=== PATIENT | male | born 1980 | race Caucasian/White ===

== ENCOUNTER → 2021-05-04 09:05 | Outpatient (CLI) | payer OTHER, SELFPAY ==
[2021-05-04 14:36] LABS: Influenza Control Positive
[2021-05-06 19:41] LABS: SARS-CoV-2 RNA PCR Negative
== END ==
PROVIDERS: PCP Internal Medicine; Visit Provider Internal Medicine
DX: R09.89 Other specified symptoms and signs involving the circulatory and respiratory systems (principal); Z20.822 Contact with and (suspected) exposure to COVID-19
CPT/HCPCS: 87804; C9803; U0003; U0005

== ENCOUNTER 2022-04-07 08:03 | Emergency (ER) | payer OTHER, SELFPAY ==
--- NOTE | 2022-04-07 08:13 | ED.URI ---
HPI - URI/Sore Throat General Chief Complaint: Upper Respiratory Infection Stated Complaint: cough Time Seen by Provider: 04/07/22 08:18 Source: patient and RN notes reviewed Mode of arrival: ambulatory Limitations: no limitations History of Present Illness HPI Narrative: [age] year old old male presents concern for sinus infection. He reports at least 1 week history of increased sinus congestion, pressure, drainage. Reports he had COVID in February and has had some level of sinus problems since that time. He reports he has been using Claritin-D for at least 1 week and is not having relief. He reports facial pain, pressure. He denies fever, aches, chills, sweats. Reports occasional cough MD elicited complaint: rhinorrhea and nasal congestion Related Data Home Medications Medication Instructions Recorded Confirmed multivitamin 1 tablet PO DAILY 04/03/19 04/07/22 alprazolam 0.5 mg tablet 0.5 mg PO TID PRN Anxiety 04/07/22 04/07/22 Allergies Allergy/AdvReac Type Severity Reaction Status Date / Time No Known Allergies Allergy Verified 04/07/22 08:10 Review of Systems Review of Systems: CONSTITUTIONAL: Denies malaise, chills, sweats, or fever. EYES: Denies visual changes, redness, or discharge. ENT: Reports rhinorrhea, congestion, sinus pain. Denies otalgia and sore throat. CARDIOVASCULAR: Denies chest pain, palpitations, or edema. RESPIRATORY: Reports cough. Denies dyspnea. GASTROINTESTINAL: Denies abdominal pain, nausea, vomiting, diarrhea SKIN: Denies rash or itching. MUSCULOSKELETAL: Denies myalgia. NEUROLOGIC: Denies headache. All systems reviewed & are unremarkable except as noted in HPI and below PMFSH Past Medical History Medical History (Updated 04/07/22 @ 08:28 by Joanie Jacobs NP) Fatigue Family History Family History Mother Patient's mother is in good health Father Patient's father is in good health Social History Social History (Updated 04/27/21 @ 10:55 by Leila Syed CNA) Smoking status: Never smoker Second hand tobacco smoke exposure: No Alcohol intake: current Substance use: never Substance use type: does not use Comments At time of signature, agree with nursing past medical, surgical, social and family history. There is no relevant family history pertinent to the presenting complaint Exam Narrative: GENERAL: Well-appearing, well-nourished, and in no acute distress. HEAD: Normocephalic EYES: PERRLA, conjunctivae clear ENT: Nares clear, turbinates edematous and erythematous. Mucous membranes moist. TM pearly castillo with dull light reflex bilaterally; no tragal tenderness. Oropharynx not erythematous without lesions. Tonsils not enlarged and without exudate, no drooling, no hoarseness, no trismus, uvula midline. NECK: Supple. No lymphadenopathy CHEST: Clear to auscultation, breath sounds equal. No wheezing, rhonchi, rales, or stridor. No respiratory distress, speaks in full sentences. HEART: Regular rate and rhythm. No murmur heard. SKIN: Warm, dry, no rash. NEURO: Alert and oriented x3. PSYCH: Normal mood and affect Course Course Emergency Course: Patient is aware of diagnosis, understands and agrees to treatment plan. Anticipatory guidance given. Patient agrees to follow-up as directed and is aware of reasons to seek care at the emergency department. Portions of this record may have been created with voice recognition software Level of Care: Express Care Visit Vital Signs Vital signs: Reviewed. MDM - URI/Sore Throat MDM Narrative Medical decision making narrative: Differential diagnosis considered: Santo virus, strep pharyngitis, allergic rhinitis, upper respiratory tract infection, sinusitis, rhinosinusitis, nasopharyngitis. viral pharyngitis, otitis media, otitis externa, pneumonia, bronchitis, viral cough syndrome, viral syndrome, and influenza. Exam findings show no acute concerns or changes; p
[2022-04-07 08:19] VITALS: BP 140/97; PULSE 110; RESP 18; TEMP 36.8; O2SAT 100
== END 2022-04-07 08:38 | disposition home or self-care (01) ==
PROVIDERS: Emergency Provider Nurse Practitioner; PCP Internal Medicine
DX: J01.90 Acute sinusitis, unspecified (principal); F41.9 Anxiety disorder, unspecified; K21.9 Gastro-esophageal reflux disease without esophagitis; Z86.16 Personal history of COVID-19
CPT/HCPCS: 99213; G0463

== ENCOUNTER 2024-03-12 16:30 | Emergency (ER) | payer OTHER, SELFPAY ==
--- NOTE | 2024-03-12 16:36 | ED_ITS ---
HPI - URI/Sore Throat General Chief Complaint: Upper Respiratory Infection Stated Complaint: cough,chest congestion Time Seen by Provider: 03/12/24 16:36 Source: patient Mode of arrival: ambulatory Limitations: no limitations History of Present Illness HPI Narrative: Patient is a 44-year-old male that presents with 10 days of coughing chest congestion. Patient states he felt like he was getting better but over the weekend symptoms worsened again. Reports he has having productive coughing in the morning and intermittently coughing fits throughout the night. Patient has tried [id number] medication with no relief. Denies any fever, chills, nausea, vomiting, diarrhea Related Data Home Medications Medication Instructions Recorded Confirmed multivitamin 1 tablet PO DAILY 04/03/19 04/29/23 Allergies Allergy/AdvReac Type Severity Reaction Status Date / Time No Known Allergies Allergy Verified 04/29/23 14:15 Review of Systems Review of Systems: All systems reviewed & are unremarkable except as noted in HPI and below Constitutional: Constitutional: Denies body ache(s), Denies chills, Denies fatigue, Denies fever(s), Denies headache(s), Denies malaise and Denies weakness Eyes: Eyes: Denies blurry vision, Denies itchy eyes and Denies loss of vision ENT: Denies otalgia, Denies headache(s), Reports nasal congestion, Denies sinus pain and Denies sore throat Cardiovascular: Cardiovascular: Denies chest pain, Denies irregular heart rhythm and Denies dyspnea Respiratory: Respiratory: Reports cough and Denies dyspnea Gastrointestinal: Gastrointestinal: Denies abdominal pain, Denies diarrhea, Denies nausea and Denies vomiting Musculoskeletal: Musculoskeletal: Denies back pain, Denies myalgias and Denies arthralgias Integumentary/Breasts: Skin/Breast: Denies pruritus and Denies rash Neurologic: Denies headache(s), Denies loss of vision and Denies weakness Psychiatric: Psychiatric: Reports no additional psychiatric complaints Endocrine: Endocrine: Denies fatigue Allergic/Immunologic: Allergic/Immunologic: Denies itchy eyes PMFSH Past Medical History Medical History Anxiety Fatigue Gastroesophageal reflux disease Family History Family History Mother Patient's mother is in good health Father Patient's father is in good health Social History Social History Smoking status: Never smoker Second hand tobacco smoke exposure: No Alcohol intake: current Alcohol use details: socially Substance use: never Substance use type: does not use Lack of Transportation: No Lack of Food: Never True Current Housing: I Have Housing Concerned About Future Housing: No Difficulty Paying Gas/Electric Bills: No Difficulty Paying for Meds: No Currently Unemployed: No Education: High School Diploma/GED Difficulty w/ Childcare or Family Care: No Comments At time of signature, agree with nursing past medical, surgical, social and family history. There is no relevant family history pertinent to the presenting complaint. Exam Const: General: cooperative, healthy appearing, comfortable, no acute distress and well nourished Nutritional Appearance: well nourished Orientation/cons ciousness: patient oriented x3 Limitations: no limitations HENMT: Head: normal to inspection, normocephalic and atraumatic Ears: hearing grossly normal bilaterally, external ears normal, TM's normal bilaterally, EAC's normal and no periauricular adenopathy Face/Nose/Sinus: Normal external nose present, Abnormal mucous membranes and turbinates present erythematous bilateral and diffuse, normal facial exam, sinuses nontender and face symmetric Face and sinus: normal facial exam, sinuses nontender and face symmetric Mouth: Yes Normal oral and palatal mucosa present, Yes lip normal, Yes tongue normal, Yes Normal salivary glands and ducts present, Yes oropharynx normal and Yes moist mucous membranes Teeth and gingiva: dentition normal Throat: posterior oropharynx normal, tonsils normal and uvula midline Eyes: General: appearance normal, both eyes and all related structures Alignment and Position: alignment normal and position normal Periorbital: periorbital findings normal Eyelids: eyelids normal Pupils: Equal, round and reactive pupils present Neck: Neck: normal visual inspection, full ROM, no lymphadenopathy and supple Chest: Chest palpation & inspection: normal inspection of the chest and normal palpation of entire chest wall Resp: Effort & Inspection: normal respiratory effort and able to speak in complete sentences Auscultation: clear to auscultation bilaterally, no crack les, no rales, no rhonchi and no wheezes Cardio: Rate: regular rate Rhythm: regular rhythm Heart sounds: S1 normal heart sound present and S2 normal heart sound present GI: Inspection: normal to inspection Skin: General skin exam: normal color and no rashes or lesions noted Neuro: General: patient oriented x3 and moves all extremities Cranial nerves: Yes Equal, round and reactive pupils present Speech: normal speech Gait exam (Neuro): Normal gait present Extrem: General: normal to inspection, full ROM and no edema Psych: Appearance: grossly normal and well kempt Mental Status: mental status grossly normal Speech and movement: Normal speech and movement present Affect: normal affect Attitude: cooperative Thought process: Normal thought process present Course Course Emergency Course: Patient is aware of diagnosis, understands and agrees to treatment plan. Anticipatory guidance given. Patient agrees to follow-up as directed and is aware of reasons to seek care at the emergency department. Portions of this record may have been created with voice recognition software Level of Care: Express Care Visit Vital Signs Vital signs: Vital Signs Temperature 36.8 C 03/12/24 16:44 Pulse Rate 95 03/12/24 16:44 Respiratory Rate 16 03/12/24 16:44 Blood Pressure 131/85 03/12/24 16:44 Pulse Oximetry 100 03/12/24 16:44 Temperature 36.8 C 03/12/24 16:44 Pulse Rate 95 03/12/24 16:44 Respiratory Rate 16 03/12/24 16:44 Blood Pressure 131/85 03/12/24 16:44 Pulse Oximetry 100 03/12/24 16:44 Reviewed MDM - URI/Sore Throat MDM Narrative Medical decision making narrative: Discharge instructions reviewed with patient, as well as provided in writing per nursing staff. The instructions also include specific and strict return/GO TO THE ER as well as f/u information. All questions have been answered, and the patient deny any further questions with discharge and discharge plan. Differential diagnosis considered: Santo virus, strep pharyngitis, allergic rhinitis, upper respiratory tract infection, sinusitis, rhinosinusitis, nasopharyngitis. viral pharyngitis, otitis media, otitis externa, otitis effusion, foreign body, cerumen impaction, viral syndrome, and influenza.? Exam findings show no acute concerns or changes; patient is non-toxic appearing and is in no distress.? Patient is appropriate for outpatient treatment and follow- up.? Medical Records Attestation: I reviewed the patient's medical records. Discharge Plan Discharge Clinical Impression: Acute purulent bronchitis Patient Disposition: Home, Self-Care Condition: Stable Instructions: Acute Bronchitis (ED) Additional Instructions: Take antibiotic as prescribed. Take steroids in the morning with food. Use Tessalon Perles as needed for cough. Other symptomatic treatments include: -Alternate Tylenol and Motrin per package directions for fever or pain. -Antihistamine medication such as Benadryl at night and Zyrtec/Claritin/Leigh during the day can help improve symptoms. -Use Flonase twice a day for 5 days then daily to help reduce the inflammation and dry up your sinuses. -You can also use Sudafed or Mucinex. Be sure to drink plenty of water with these medications at least 8 ounces with every dose and it is important to drink 8 to 10 glasses of water per day. Water is a natural decongestant -Eat and drink things that are easy to swallow, like tea or soup, or popsicles. -Oral rinses such as: Salt water gargles and/or may use topical anesthetic (eg. Chloraseptic spray) or lozenges to relieve dryness or throat pain). -Frequent hand washing or hand bar machine operator multiple spindle is one of the best ways to prevent spread of infection. -Using a vaporizer or humidifier at night will also help thin secretions and help with coughing up phlegm. -Follow up with primary care provider in 3-5 days if condition is not improving - For new or worsening symptoms go directly to the nearest ER Prescriptions: New azithromycin 250 mg tablet See Rx Instructions .ROUTE .COMPLEX Qty: 6 0RF Rx Instructions: For 250 mg dose pack: take 500 mg today (day 1), then 250 mg for 4 days (days 2-5) prednisone 20 mg tablet 40 mg PO DAILY 5 Days Qty: 10 0RF benzonatate 100 mg capsule 100 mg PO BID PRN (Reason: cough) Qty: 14 0RF No Action multivitamin Tablet 1 tablet PO DAILY famotidine [Pepcid] 20 mg tablet 20 mg PO DAILY Qty: 30 6RF Follow-up/Referrals: Tommy Cedillo APRN [Primary Care Provider] - 3 Days Time of Disposition: 17:11
[2024-03-12 16:44] VITALS: BP 131/85; PULSE 95; RESP 16; TEMP 36.8; O2SAT 100
== END 2024-03-12 17:19 | disposition home or self-care (01) ==
PROVIDERS: Emergency Provider Nurse Practitioner Family; PCP Nurse Practitioner
DX: J20.9 Acute bronchitis, unspecified (principal); K21.9 Gastro-esophageal reflux disease without esophagitis
CPT/HCPCS: 99213; G0463

== ENCOUNTER 2024-03-27 17:21 | Emergency (ER) | payer OTHER, SELFPAY ==
[2024-03-27 17:30] VITALS: BP 133/85; PULSE 89; RESP 18; TEMP 36.9; O2SAT 100
--- NOTE | 2024-03-27 18:36 | ED_ITS ---
HPI - URI/Sore Throat General Chief Complaint: Upper Respiratory Infection Stated Complaint: cough,chest congestion Source: patient, RN notes reviewed and old records reviewed Mode of arrival: ambulatory Limitations: no limitations History of Present Illness HPI Narrative: Patient who was treated for pneumonia with a Z-Onel and prednisone on 03/12/2024 presents with complaints of lingering cough. He reports that he felt as though he was getting better, than about a week ago began notice an increase in productive cough. He denies any fever, chills, sweats. He states he did take all medications as prescribed. He denies any shortness of breath. Does report the cough feels congested, seems worse at night. No fever, chills, sweats. No distress, including respiratory distress Related Data Allergies Allergy/AdvReac Type Severity Reaction Status Date / Time No Known Allergies Allergy Verified 03/27/24 17:24 Review of Systems Review of Systems: All systems reviewed & are unremarkable except as noted in HPI and below Constitutional: Constitutional: Reports no additional constitutional complaints ENT: Reports system reviewed and no additional complaints, except as documented Cardiovascular: Cardiovascular: Reports no additional cardiovascular complaints Respiratory: Respiratory: Reports no additional respiratory complaints, Reports chest congestion and Reports cough Gastrointestinal: Gastrointestinal: Reports no additional gastrointestinal complaints PMF Past Medical History Medical History Anxiety Fatigue Gastroesophageal reflux disease Family History Family History Mother Patient's mother is in good health Father Patient's father is in good health Social History Social History Smoking status: Never smoker Second hand tobacco smoke exposure: No Alcohol intake: current Alcohol use details: socially Substance use: never Substance use type: does not use Lack of Transportation: No Lack of Food: Never True Current Housing: I Have Housing Concerned About Future Housing: No Difficulty Paying Gas/Electric Bills: No Difficulty Paying for Meds: No Currently Unemployed: No Education: High School Diploma/GED Difficulty w/ Childcare or Family Care: No Comments At the time of my signature, I reviewed and agree with the nursing past medical, surgical, social, and family history. There is no relevant family history pertinent to the patient complaint. Exam Const: General: cooperative, no acute distress, alert and awake Orientation/consciousness: oriented to person, oriented to place and oriented to time HENMT: Head: normal to inspection Resp: Effort & Inspection: normal respiratory effort and able to speak in complete sentences Auscultation: clear to auscultation bilaterally, no crackles, no rales, no rhonchi and no wheezes Cardio: Palpation: normal PMI Rate: regular rate Rhythm: regular rhythm Heart sounds: S1 normal heart sound present and S2 normal heart sound present Neuro: General: oriented to person, oriented to place and oriented to time Cranial nerves: Yes CN's II-XII intact bilaterally Psych: Appearance: grossly normal Thought process: Normal thought process present Insight: Good insight present (Psych) Judgement: Good judgement present (Psych) Course Course Level of Care: Express Care Visit Vital Signs Vital signs: Vital Signs Temperature 98.5 F 03/27/24 17:30 Pulse Rate 89 03/27/24 17:30 Respiratory Rate 18 03/27/24 17:30 Blood Pressure 133/85 03/27/24 17:30 Pulse Oximetry 100 03/27/24 17:30 Oxygen Delivery Room Air 03/27/24 17:30 Temperature 98.5 F 03/27/24 17:30 Pulse Rate 89 03/27/24 17:30 Respiratory Rate 18 03/27/24 17:30 Blood Pressure 133/85 03/27/24 17:30 Pulse Oximetry 100 03/27/24 17:30 Oxygen Delivery Room Air 03/27/24 17:30 Reviewed MDM - URI/Sore Throat MDM Narrative Medical decision making narrative: Patient nontoxic appearing, no distress. Reports lingering cough after being treated for pneumonia. Explained this is normal resolution of this particular illness, no benefit to getting another chest x-ray at this time. Patient verbalizes understanding. Will treat with albuterol inhaler. Patient advised follow-up with primary care provider, emergency department for new or worse symptoms. Discharge instructions reviewed with patient, as well as provided in writing per nursing staff. The instructions also include specific and strict return/GO TO THE ER as well as f/u information. All questions have been answered, and the patient deny any further questions with discharge and discharge plan. Some parts of this dictation were generated by voice recognition software and may contain typographical and/or grammatical inaccuracies. Differential Diagnosis Differential diagnosis: Likely upper respiratory infection, viral infection and bronchitis Medical Records Attestation: I reviewed the patient's medical records. Discharge Plan Discharge Clinical Impression: Cough in adult Patient Disposition: Home, Self-Care Condition: Stable Instructions: Antibiotic Form, Acute Cough (ED) Additional Instructions: Use medications per instructions, [id number] cough medicine per package instructions. Follow with primary care provider. Emergency department for new or worse symptoms Patient Language: [place] Prescriptions: New albuterol sulfate [Ventolin HFA] 90 mcg/actuation HFA aerosol inhaler 2 puff inhalation QID PRN (Reason: shortness of breath or wheezing) Qty: 8.5 0RF Follow-up/Referrals: Tommy Cedillo APRN [Primary Care Provider] - Time of Disposition: 18:47
== END 2024-03-27 18:56 | disposition home or self-care (01) ==
PROVIDERS: Emergency Provider Nurse Practitioner Family; PCP Nurse Practitioner
DX: R05.9 Cough, unspecified (principal); K21.9 Gastro-esophageal reflux disease without esophagitis
CPT/HCPCS: 99213; G0463

== ENCOUNTER 2024-04-13 09:14 | Outpatient (CLI) | payer OTHER, SELFPAY ==
--- NOTE | ~2024-04-13 | XR_ITS ---
XR chest 2V DATE: 04/13/2024 09:31 INDICATION: Cough TECHNIQUE: PA and lateral views COMPARISON: None FINDINGS: Normal heart size. No hilar or mediastinal enlargement. No pulmonary infiltrate or consolidation, pleural effusion or pulmonary vascular congestion or pneumo thorax is detected. IMPRESSION: No active cardiopulmonary disease Reviewed, dictated and finalized at location [facility]
== END 2024-04-13 09:15 | disposition home or self-care (01) ==
PROVIDERS: PCP Nurse Practitioner; Visit Provider Nurse Practitioner
DX: R05.8 Other specified cough (principal)
CPT/HCPCS: 71046

== ENCOUNTER 2024-05-30 14:39 | Emergency (ER) | payer OTHER, SELFPAY ==
--- NOTE | ~2024-05-30 | CT_ITS ---
EXAMINATION: CT abdomen pelvis wo/w con DATE: 05/30/2024 18:04 INDICATION: Hematuria TECHNIQUE: Computed tomography (CT) of the abdomen and pelvis was performed without and with 1 30 cc Omnipaque 350 intravenous contrast. The dose-length product was 1866.38 mGy-cm. Automated exposure co ntrol and iterative reconstruction technique were employed. COMPARISON: None. FINDINGS: There is a heterogeneously enhancing right renal mass measuring 12.5 x 9.4 x 10.9 cm, consi stent with renal cell carcinoma. There are small nodular density surrounding the right kidney, possib ly local invasion. Lung bases unremarkable. There are calcifications throughout the right renal mass. The liver, spleen, pancreas, adrenal glands are unremarkable. No lymphadenopathy. Gallbladder is present. No focal lyti c or blastic lesions. There is degenerative spondylosis at L5-S1. No significant vascular abnormality . IMPRESSION: 1. Large heterogeneously enhancing right renal mass measuring up to 12.5 cm, consistent with renal ce ll carcinoma until proven otherwise. Possible local extension of tumor. Reviewed, dictated and finalized at location A. OR DATA DEVELOPER IMPRESSION: 1. Large heterogeneously enhancing right renal mass measuring up to 12.5 cm, co nsistent with renal cell carcinoma until proven otherwise. Possible local exten anabell of tumor.
[2024-05-30 14:55] VITALS: BP 152/105; PULSE 96; RESP 17; TEMP 36.4; O2SAT 100
--- NOTE | 2024-05-30 14:58 | ED_ITS ---
HPI - Male Genitourinary General Chief complaint: Urogenital-Male <Monserrat Guido PA-C - Last Filed: 05/30/24 14:59> Stated complaint: hematuria <Monserrat Guido PA-C - Last Filed: 05/30/24 14:59> Time Seen by Provider: 05/30/24 15:54 <Monserrat Guido PA-C - Last Filed: 05/30/24 14:59> Focused HPI: 44-year-old male to the emergency department for hematuria. Patient states last going to the bathroom he had blood-tinged urine. He noticed this morning when he woke up saw the urine in the toilet he denies flush overnight. States since 11:00 a.m. today the hematuria has resolved any trauma goes to the bathroom and is normal. He does believe earlier this morning he passed a small clot. He has no burning with urination, frequency urgency, abdominal pain, flank pain. History of kidney stones. He states it feels like he is emptying his bladder fully. States this has never happened before. GENERAL: Well-appearing, well-nourished, and in no acute distress. HEAD: Normocephalic, atraumatic. CHEST: Clear to auscultation. ?No respiratory distress. ABD: Soft, nontender, no CVA tenderness HEART: Regular rate and rhythm.? NEURO: ?Alert and oriented x3. Patient screened in triage and initial orders placed.? ?Additional care and disposition to be based upon?diagnostic testing and treatment. <Monserrat Guido PA-C - Last Filed: 05/30/24 14:59> History of Present Illness HPI Narrative: Agree with HPI. Painless hematuria, trauma 1 week ago does not seem related. Other complaints. Urine clearing up. No exposure to chemicals/dyes. <Braden Burris MD - Last Filed: 05/30/24 19:09> Related Data Allergies/Adverse reactions: Allergies Allergy/AdvReac Type Severity Reaction Status Date / Time No Known Allergies Allergy Verified 05/30/24 14:39 <Monserrat Guido PA-C - Last Filed: 05/30/24 14:59> Review of Systems 2 Review of Systems: All systems reviewed & are unremarkable except as noted in HPI and below <Braden Burris MD - Last Filed: 05/30/24 19:09> Constitutional: Constitutional: Reports no additional constitutional complaints <Braden Burris MD - Last Filed: 05/30/24 19:09> Gastrointestinal: Gastrointestinal: Reports no additional gastrointestinal complaints <Braden Burris MD - Last Filed: 05/30/24 19:09> Genitourinary: Genitourinary: Reports no additional male genitourinary complaints <Braden Burris MD - Last Filed: 05/30/24 19:09> PMFSH Past Medical History Medical History: Medical History Anxiety Fatigue Gastroesophageal reflux disease <Monserrat Guido PA-C - Last Filed: 05/30/24 14:59> Family History Family History: Family History Mother Patient's mother is in good health Father Patient's father is in good health <Monserrat Guido PA-C - Last Filed: 05/30/24 14:59> Social History Social History: Social History Smoking status: Never smoker Second hand tobacco smoke exposure: No Alcohol intake: current Alcohol use details: socially Substance use: never Substance use type: does not use Lack of Transportation: No Lack of Food: Never True Current Housing: I Have Housing Concerned About Future Housing: No Difficulty Paying Gas/Electric Bills: No Difficulty Paying for Meds: No Currently Unemployed: No Education: High School Diploma/GED Difficulty w/ Childcare or Family Care: No <Monserrat Guido PA-C - Last Filed: 05/30/24 14:59> Exam 2 Narrative: GENERAL: Well-appearing, well-nourished, and in no acute distress. HEAD: Normocephalic, atraumatic. ENT: Mucous membranes moist. CHEST: Clear to auscultation. No respiratory distress. HEART: Regular rate and rhythm. Normal peripheral pulses. ABDOMEN: Soft, nontender, nondistended. No CVA tenderness EXTREMITIES: Normal range of motion. No edema. NEURO: Alert and oriented x3. PSYCH: Normal mood and affect. <Braden Burris MD - Last Filed: 05/30/24 19:09> Course Course Emergency Course: Discussed case with Dr. Franco. He will end up referring the patient to Dr. Pelaez and believes at their office should call the patient tomorrow. Patient will require nephrectomy in further evaluation through Urology oncology. I had a prolonged discussion about the imaging results and the treatment plan moving forward. I have answered all questions the best of my ability. Patient will be discharged <Braden Burris MD - Last Filed: 05/30/24 19:09> Vital Signs Vital signs: Vital Signs Temperature 97.6 F 05/30/24 14:55 Pulse Rate 96 05/30/24 14:55 Respiratory Rate 17 05/30/24 14:55 Blood Pressure 152/105 H 05/30/24 14:55 Pulse Oximetry 100 05/30/24 14:55 Oxygen Delivery Room Air 05/30/24 14:55 Temperature 97.6 F 05/30/24 14:55 Pulse Rate 96 05/30/24 14:55 Respiratory Rate 17 05/30/24 14:55 Blood Pressure 152/105 H 05/30/24 14:55 Pulse Oximetry 100 05/30/24 14:55 Oxygen Delivery Room Air 05/30/24 14:55 <Monserrat Guido PA-C - Last Filed: 05/30/24 14:59> Vital Signs Temperature 97.6 F 05/30/24 14:55 Pulse Rate 96 05/30/24 14:55 Respiratory Rate 17 05/30/24 14:55 Blood Pressure 152/105 H 05/30/24 14:55 Pulse Oximetry 100 05/30/24 14:55 Oxygen Delivery Room Air 05/30/24 14:55 Temperature 97.6 F 05/30/24 14:55 Pulse Rate 96 05/30/24 14:55 Respiratory Rate 17 05/30/24 14:55 Blood Pressure 152/105 H 05/30/24 14:55 Pulse Oximetry 100 05/30/24 14:55 Oxygen Delivery Room Air 05/30/24 14:55 <Braden Burris MD - Last Filed: 05/30/24 19:09> MDM - Male Genitourinary Lab Data Result diagrams: 05/30/24 17:02 <Monserrat Guido PA-C - Last Filed: 05/30/24 14:59> Labs: Lab Results 05/30/24 05/30/24 Range/Units 15:05 17:02 Creatinine 0.77 (0.7-1.3) mg/dL Estim Creat Clear Calc 115 ml/min Estimated GFR > 60 (59 - ) Urine Color Yellow (Yellow) Urine Appearance Clear (Clear) Urine pH 6.5 (5.0-9.0) Ur Specific [place] 1.007 (1.001-1.035) Urine Protein Negative (Negative) mg/dL Urine Glucose (UA) Negative (Negative) mg/dL Urine Ketones Negative (Negative) mg/dL Ur Blood (Man) 3+ H (Negative) Urine Nitrate Negative (Negative) Urine Bilirubin Negative (Negative) Urine Urobilinogen 0.2 (<2.0) mg/dL Leukocyte Esterase Rfl Negative (Negative) KELLEY/UL Urine RBC 11-20 H (0-2) /hpf Urine WBC 0-5 (0-3) /hpf Ur Squamous Epith Cells None seen (Few) /hpf Urine Bacteria None seen /hpf Urine Casts 0-2 <Monserrat Guido PA-C - Last Filed: 05/30/24 14:59> Lab Results 05/30/24 05/30/24 Range/Units 15:05 17:02 Creatinine 0.77 (0.7-1.3) mg/dL Estim Creat Clear Calc 115 ml/min Estimated GFR > 60 (59 - ) Urine Color Yellow (Yellow) Urine Appearance Clear (Clear) Urine pH 6.5 (5.0-9.0) Ur Specific [place] 1.007 (1.001-1.035) Urine Protein Negative (Negative) mg/dL Urine Glucose (UA) Negative (Negative) mg/dL Urine Ketones Negative (Negative) mg/dL Ur Blood (Man) 3+ H (Negative) Urine Nitrate Negative (Negative) Urine Bilirubin Negative (Negative) Urine Urobilinogen 0.2 (<2.0) mg/dL Leukocyte Esterase Rfl Negative (Negative) KELLEY/UL Urine RBC 11-20 H (0-2) /hpf Urine WBC 0-5 (0-3) /hpf Ur Squamous Epith Cells None seen (Few) /hpf Urine Bacteria None seen /hpf Urine Casts 0-2 <Braden Burris MD - Last Filed: 05/30/24 19:09> Imaging Data Radiologist's impression: ITS Impressions Abdomen/Pelvis CT 05/30/24 18:06 IMPRESSION: 1. Large heterogeneously enhancing right renal mass measuring up to 12.5 cm, consistent with renal cell carcinoma until proven otherwise. Possible local extension of tumor. <Braden Burris MD - Last Filed: 05/30/24 19:09> Discharge Plan Discharge Clinical Impression: Renal cell carcinoma <Monserrat Guido PA-C - Last Filed: 05/30/24 14:59> Patient Disposition: Home, Self-Care <Monserrat Guido PA-C - Last Filed: 05/30/24 14:59> Condition: Stable <Monserrat Guido PA-C - Last Filed: 05/30/24 14:59> Instructions: Renal Cancer (DC) <Monserrat Guido PA-C - Last Filed: 05/30/24 14:59> Additional Instructions: Call the urologist tomorrow if you do not hear from them by lunch time. You will need close follow-up and then will undergo a surgery to remove your kidney. Return the ER if you have severe abdominal pain, you lose consciousness, you develop fever over 100.4? F, or you have additional concerns. <Monserrat Guido PA-C - Last Filed: 05/30/24 14:59> Patient Language: Khmer <Monserrat Guido PA-C - Last Filed: 05/30/24 14:59> Prescriptions: No Action albuterol sulfate [Ventolin HFA] 90 mcg/actuation HFA aerosol inhaler 2 puff inhalation QID PRN (Reason: shortness of breath or wheezing) Qty: 8.5 0RF methylprednisolone [Medrol (Onel)] 4 mg tablets,dose pack See Rx Instructions PO PER PKG DIR Qty: 21 0RF Rx Instructions: PO PER PKG DIR <Monserrat Guido PA-C - Last Filed: 05/30/24 14:59> Follow-up/Referrals: Yonny Pelaez MD [Physician] - 3 Days Tommy Cedillo APRN [Primary Care Provider] - Rick Franco MD [Physician] - 1 Week <Monserrat Guido PA-C - Last Filed: 05/30/24 14:59>
[2024-05-30 15:29] LABS: Add Urine Microscopic? YES; Appearance Urine Clear (Clear); Bacteria Urine None Seen /hpf; Bilirubin Urine Negative (Negative); Blood Urine 3+ (Negative); Color Urine Yellow (Yellow); Glucose Urine UA Negative (Negative); Ketones Urine Negative (Negative); Leukocyte Esterase Ur Negative LEU/UL (Negative); Nitrate Urine Negative (Negative); Non Pathogenic Casts 0-2; Protein Urine Negative (Negative); Specific Grav Ur 1.007 (1.001-1.035); Squamous Epithelial Cell Urine None Seen /hpf (Few); Urobilinogen Urine 0.2 mg/dL (<2.0); WBC Urine 0-5 /hpf (0-3); pH Urine 6.5 (5.0-9.0)
[2024-05-30 17:21] LABS: Estimated CRCL calculation 115 ml/min; Estimated Glomerular Filt Rate > 60
[2024-05-30 17:32] VITALS: BP 148/98; PULSE 84; RESP 16; O2SAT 98
== END 2024-05-30 19:17 | disposition home or self-care (01) ==
PROVIDERS: Physician Assistant; Emergency Provider Emergency Medicine; PCP Nurse Practitioner
DX: C64.1 Malignant neoplasm of right kidney, except renal pelvis (principal); F41.9 Anxiety disorder, unspecified; K21.9 Gastro-esophageal reflux disease without esophagitis
CPT/HCPCS: 36415; 74178; 81001; 82565; 99284; Q9967

== ENCOUNTER 2024-12-21 02:29 | Day surgery (SDC) | payer OTHER, SELFPAY ==
[2024-12-07 10:52] VITALS: BMI 26.3
--- OUTSIDE RECORDS SUMMARY | 2024-12-21 02:34 | XMS_ITS | Clinical Summary ---
Author Organization [facility] Address [address] [place] [id number] Care Team Providers Care It Consultant Name Role Phone Tommy Cedillo NP Primary Care Provider [phone] Social History Tobacco Use Types Packs/Day Years Used Date Smoking Tobacco: Never Assessed Sex and Gender Information Value Date Recorded Sex Assigned at Male 06/07/2024 3:09 PM MEDICAL SALES REPRESENTATIVE Legal Sex Male 11:44 AM MEDICAL SALES REPRESENTATIVE Gender Identity Not on file Sexual Orientation Not on file Plan of Treatment Health Maintenance Due Date Last Done Comments Colorectal Cancer Screening Colonoscopy (10 Years) 1979 Annual Physical 1982 Hepatitis C 1997 DTaP, Tdap and Td Vaccines ( 1 - Tdap) 1998 Hepatitis B Vaccines (1 of 3 - 19+ 3-dose series) 1998 HPV Vaccines (1 - 3-dose SCD M series) 2006 COVID-19 Vaccine (3 - 2023-2 5 season) 2024 08/01/2020, 07/11/2020 Meningococcal B Vaccine Aged Out No l onger eligible based on patient's age to complete this topic Meningococcal Vaccine Aged Out No rhea zina eligible based on patient's age to complete this topic Pneumococcal Vaccine: Pediatrics (0 to 5 Years) and At-Risk Patients (6 to 49 Years) Aged Out No longer eligible b ased on patient's age to complete this topic RSV Immunizations Under 20 Months Aged Out No longer eligible b ased on patient's age to complete this topic Insurance [employer] Care Teams It Consultant Relationship Specialty Start Date End Date Tommy Cedillo NP [id number] [place] [address] PCP - General NURSE PRACTITIONER 06/07/24
--- OUTSIDE RECORDS SUMMARY | 2024-12-21 02:34 | XMS_ITS | Clinical Summary ---
Author Organization [facility] Address [address] [place] [address] Care Team Providers Care Electronics Tester Name Role Phone Kaiser Azevedo MD Primary Care Provider [phone] Source Comments [facility],non-owned Affiliates and Associated Physician Practices is amultiple site organization consisting of ambulatory clinics and hospital sitesin [place], [place], [place] and [place]. This disclosure is being madepursuant to the Care Everywhere program and may not contain all information available regarding this patient. Last updated 18.[facility] Allergies No known active allergies Medications * Be aware that medications may not be up to date on this document. Alwaysverify current medications with the patient. albuterol HFA (VENTOLIN HFA) 108 (90 Base) MCG/ACT inhaler Inhale 2 puffs by mouth every 6 hours as needed 1 Inhaler 11/05/2018 Active fluticasone propionate (FLONASE) 50 MCG/ACT nasal spray [place] 2 sprays into each nostril once daily 1 bottles 11/05/2018 Active Active Problems No known active problems Social History Tobacco Use Types Packs/Day Years Used Date Smoking Tobacco: Never Smokeless Tobacco: Never Sex and Gender Information Value Date Recorded Sex Assigned at Not on file Legal Sex Male 5:36 AM HEAD OF IT Gender Identity Not on file Sexual Orientation Not on file Last Filed Vital Signs Vital Sign Reading Time Taken Comments Blood Pressure 124/78 11/05/2018 10:18 AM CDT Pulse 58 11/05/2018 10:18 AM CDT Temperature 37.1 C (98.7 F) 11/05/2018 10:18 AM CDT Respiratory Rate 17 11/05/2018 10:18 AM CDT Oxygen Saturation 97% 11/05/2018 10:18 AM CDT Inhaled Oxygen Concentration - - Weight 90.7 kg (200 lb) 11/05/2018 10:18 AM CDT Height 188 cm (6' 2) 11/05/2018 10:18 AM CDT Body Mass Index 25.68 11/05/2018 10:18 AM CDT Plan of Treatment Health Maintenance Due Date Last Done Comments COLOGUARD (AGES 45-75) - COL ON CA SCREENING 1979 COLON MONITORING 1979 COLONOSCOPY - COLON CA SCREENING 1979 CT COLONOGRAPHY - COLON CA SCREENING 1979 Colorectal Cancer Screening 1979 FIT - COLON CA SCREENING 1979 FLEX SIG - COLON CA SCREENING 1979 LIPID TESTING 1979 HIV SCREENING 1994 HEPATITIS C SCREENING 02/27/1997 DTAP/TDAP/TD VACCINES (1 - Tdap) 1998 HEPATITIS B VACCINE (1 of 3 - 19+ 3-dose series) 1998 HPV VACCINE (1 - 3-dose SCDM series) 2006 COVID-19 VACCINE (1 - 2023-2 5 season) 2024 DEPRESSION SCREENING 05/16/2024 INFLUENZA VACCINE (#1) 2025 ZOSTER VACCINE (1 of 2) 2029 HIB VACCINE Aged Out No longer eligi ble based on patient's age to complete this topic MENINGOCOCCAL (Group B) VACC INE SHARED DECISION-MAKING Aged Out No longer eligibl e based on patient's age to complete this topic MENINGOCOCCAL GROUPS A/C/Y/W VACCINE Aged Out No longer eligible b ased on patient's age to complete this topic PNEUMOCOCCAL VACCINE Aged Out No long er eligible based on patient's age to complete this topic Insurance [facility] Care Teams Electronics Tester Relationship Specialty Start Date End Date Kaiser Azevedo MD [address] [place] [id number] PCP - General Internal Medicine 05/16/18
[2024-12-21 07:15] VITALS: BP 119/86; PULSE 85; RESP 14; TEMP 37.1; O2SAT 100; BMI 25.5
[2024-12-21] MEDS: LACTATED RINGERS 1,000 ML 150 ML IV CONT (07:31)
--- NOTE | 2024-12-21 07:52 | P.HP_ITS ---
H&P: HPI History of Present Illness Date/Time: 12/21/24 07:52 Chief Complaint: family history of colon polyps Narrative: This patient has family history of colorectal polyps. his mother was recently diagnosed with more than 18 colonic polyps and his mother's brother of colorectal cancer in his 50s. The patient is asymptomatic from a GI standpoint. Review of Systems Review of Systems: All systems reviewed & are unremarkable except as noted in HPI and below PMFSH Past Medical History Medical History (Updated 12/21/24 @ 07:54 by Wilton Ha MD) BMI 26.0-26.9,adult Gastroesophageal reflux disease Fatigue Anxiety Surgical History Surgical History (Updated 06/13/24 @ 07:29 by SARAN Davis) H/O hernia repair Family History Family History (Updated 06/13/24 @ 07:29 by SARAN Davis) Mother Patient's mother is in good health Father Patient's father is in good health Sibling No problems noted. Social History Social History (Updated 06/13/24 @ 07:30 by SARAN Davis) Smoking status: Never smoker Second hand tobacco smoke exposure: No Alcohol intake: current Alcohol use details: 6 drinks socially Substance use: never Substance use type: does not use Do You Feel Safe in your Home?: Yes Lack of Transportation: No Lack of Food: Never True Current Housing: I Have Housing Concerned About Future Housing: No Difficulty Paying Gas/Electric Bills: No Difficulty Paying for Meds: No Currently Unemployed: No Education: High School Diploma/GED Difficulty w/ Childcare or Family Care: No Living arrangements: with family Occupation/Education: occupation 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 Gender identity (if verbalized by the patient): Male Spiritual care concerns: No Meds Home Medications and Allergies Home Medications ?Medication ?Instructions ?Recorded ?Confirmed ?Type alprazolam 0.25 mg tablet (Xanax) 0.25 mg PO TID PRN anxiety #30 tabs 07/24/24 12/07/24 Rx Allergies Allergy/AdvReac Type Severity Reaction Status Date / Time No Known Allergies Allergy Verified 12/21/24 07:21 Vital Signs Vital Signs - 24 hr 12/21/24 07:15 Temperature 98.7 F Pulse Rate 85 Respiratory Rate 14 Blood Pressure 119/86 Pulse Oximetry 100 Oxygen Delivery Room Air Exam Const: General: cooperative and healthy appearing Resp: Effort & Inspection: normal respiratory effort and able to speak in complete sentences Auscultation: clear to auscultation bilaterally Cardio: Rate: regular rate Rhythm: regular rhythm GI: Inspection: normal to inspection GI Palp: No No hepatosplenomegaly present Auscultation: normal bowel sounds Rectal Exam: deferred Skin: General skin exam: normal color Psych: Appearance: grossly normal Mental Status: mental status grossly normal Assessment and Plan Assessment and plan (1) Family history of polyps in the colon: Code(s): Z83.719 - Family history of colon polyps, unspecified Status: Acute Assessment and Plan: The patient is deemed a good candidate for the procedure. Consent signed. Will proceed.
--- NOTE | 2024-12-21 07:59 | P.PNAN_ITS ---
Anes - Initial Pre Proc Eval Procedure: Operation Date: 12/21/24 08:30 Proposed Procedures p Screening Colonoscopy - Wilton Ha MD Date/Time: 12/21/24 07:59 Surgeon: Wilton Ha MD Pre Op Diagnosis: family hx malignant neoplasm of digestive organs Patient Data Age: 44 Gender: M Height: 1.88 m Weight: 90.4 kg Last Vital Signs Temp 37.1 C 12/21/24 07:15 Pulse 85 12/21/24 07:15 Resp 14 12/21/24 07:15 BP 119/86 12/21/24 07:15 Pulse Ox 100 12/21/24 07:15 O2 Del Method Room Air 12/21/24 07:15 Allergies Allergy/AdvReac Type Severity Reaction Status Date / Time No Known Allergies Allergy Verified 12/21/24 07:21 Home Medications ?Medication ?Instructions ?Recorded ?Confirmed ?Type alprazolam 0.25 mg tablet (Xanax) 0.25 mg PO TID PRN anxiety #30 tabs 07/24/24 12/07/24 Rx Patient hx anesthesia problems: none Family hx anesthesia problems: none Results Review: All pre-operative results and documents have been reviewed as part of the pre- operative evaluation. [facility] Past Medical History Medical History BMI 26.0-26.9,adult Gastroesophageal reflux disease Fatigue Anxiety Surgical History Surgical History H/O hernia repair Family History Family History Mother Patient's mother is in good health Father Patient's father is in good health Sibling No problems noted. Social History Social History Smoking status: Never smoker Second hand tobacco smoke exposure: No Alcohol intake: current Alcohol use details: 6 drinks socially Substance use: never Substance use type: does not use Do You Feel Safe in your Home?: Yes Lack of Transportation: No Lack of Food: Never True Current Housing: I Have Housing Concerned About Future Housing: No Difficulty Paying Gas/Electric Bills: No Difficulty Paying for Meds: No Currently Unemployed: No Education: High School Diploma/GED Difficulty w/ Childcare or Family Care: No Living arrangements: with family Occupation/Education: occupation 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 Informed Consent: The patient's anesthetic plan and its attendant risks and benefits were discussed with the patient/family/POA. Questions were solicited and answers provided to the satisfaction of the patient/family/POA.
[2024-12-21] MEDS: SIMETHICONE ORAL SUSPENSION 20 MG/0.3 ML 30 ML BOTTLE 0.6 ML IRRIGATION (08:27)
[2024-12-21 08:36] VITALS: BP 105/73; PULSE 75; RESP 13; O2SAT 100
--- NOTE | 2024-12-21 08:36 | S_PTH ---
PATIENT: Osmani Schmitt LOC: DEL U#:[id number] AGE/SX: 44/M ROOM: RE12/21/[address]: Wilton Ha MD : 1980 BED: DIS: 12/21/2024 SPEC #: [id number] RECD: 12/21/24 09:01 STATUS: CHRISTIAN REArielle #: [id number] FARHANA: 12/21/24 08:[address]: Wilton Ha DEPT: [facility] Surgical RECD BY: Gladis Wagoner ENTERED: 12/21/24 09:01 SP TYPE: Surgical OTHR DR: Tommy Cedillo APRN Tissues: A - Colon Polypectomy Procedures: Hematoxylin and Eosin Stain Gross and Microscopic Level 4
[2024-12-21 08:46] VITALS: BP 102/76; PULSE 75; RESP 20; O2SAT 100
[2024-12-21 08:56] VITALS: BP 108/79; PULSE 68; RESP 20; O2SAT 100
== END 2024-12-21 09:08 | disposition home or self-care (01) ==
PROVIDERS: PCP Nurse Practitioner; Referring Provider Nurse Practitioner; Visit Provider Internal Medicine Gastroenterology
PROC: 0DJD8ZZ Inspection of Lower Intestinal Tract, Via Natural or Artificial Opening Endoscopic (ICD-10-PCS; CPT 45378; principal; 2024-12-21 08:30)
DX: Z12.11 Encounter for screening for malignant neoplasm of colon (principal); D12.3 Benign neoplasm of transverse colon; K64.8 Other hemorrhoids; K21.9 Gastro-esophageal reflux disease without esophagitis; F41.9 Anxiety disorder, unspecified; R53.83 Other fatigue; Z98.890 Other specified postprocedural states; Z83.719 Family history of colon polyps, unspecified; Z80.0 Family history of malignant neoplasm of digestive organs
CPT/HCPCS: 45385; 88305; J2704; J7120